=== PATIENT | female | born 1980 | race Caucasian/White ===

== ENCOUNTER 2019-05-28 19:26 | Emergency (ER) | payer BC ==
[2019-05-28 19:57] VITALS: BP 126/62; PULSE 80
--- NOTE | 2019-05-28 20:20 | EDM.PDOC ---
ED HPI GENERAL MEDICAL PROBLEM - General Chief Complaint: Abdominal Pain Stated Complaint: SIDE PAIN Time Seen by Provider: 05/28/19 19:28 Source of Information: Reports: Patient History Limitations: Reports: No Limitations - History of Present Illness INITIAL COMMENTS - FREE TEXT/NARRATIVE: This is a 38-year-old female. Onset around 10:30 AM with right lower quadrant and right flank pain. This pain seemed to start after she voided. Since that time she's been having intermittent pain that is worse with urinating and the pain seems to spread across her lower abdomen when she urinates. She's had no diarrhea she's had no fever or chills she's had no nausea or vomiting. When the pain is real sharp she has to bend over and cannot walk upright. She has no history of kidney stones. She still has her appendix though she does not have a gallbladder. Her tubes been tied and she's had no history of ovarian problems. She denies any fever or chills. Right Lower Abdomen Pain Score (Numeric/FACES): 7 - Related Data Allergies Allergy/AdvReac Type Severity Reaction Status Date / Time No Known Allergies Allergy Verified 05/28/19 19:52 Home Meds: Home Meds . [No Known Home Meds] 05/28/19 [History] Past Medical History - Past Surgical History GI Surgical History: Reports: Cholecystectomy Female Surgical History: Reports: Tubal Ligation Musculoskeletal Surgical History: Reports: Shoulder Surgery Social & Family History - Tobacco Use Smoking Status *Q: Never Smoker ED ROS GENERAL - Review of Systems Review Of Systems: See Below Constitutional: Denies: Fever, Chills HEENT: Reports: No Symptoms Respiratory: Denies: Shortness of Breath, Cough Cardiovascular: Denies: Chest Pain Endocrine: Reports: No Symptoms GI/Abdominal: Reports: Abdominal Pain. Denies: Constipation, Diarrhea, Nausea, Vomiting : Reports: Flank Pain, Frequency, Urgency. Denies: Dysuria Musculoskeletal: Reports: No Symptoms Skin: Reports: No Symptoms Neurological: Reports: No Symptoms Psychiatric: Reports: No Symptoms Hematologic/Lymphatic: Reports: No Symptoms ED EXAM, GI/ABD - Physical Exam Exam: See Below Exam Limited By: No Limitations General Appearance: Alert, WD/WN, No Apparent Distress Eyes: Bilateral: Normal Appearance Ears: Normal External Exam Nose: Normal Inspection Throat/Mouth: Normal Inspection, Normal Lips, Normal Voice, No Airway Compromise Head: Normocephalic Neck: Supple Respiratory/Chest: No Respiratory Distress, Lungs Clear, Normal Breath Sounds Cardiovascular: Regular Rate, Rhythm, No Murmur GI/Abdominal Exam: Soft, Other (Bowel sounds are decreased, but she is tender in the right lower quadrant and over McBurney's point with some mild peritoneal irritation, she is also tender in the right flank area on palpation, the left lower quadrant and the upper abdomen is nontender on palpation, when I jiggle the left side the right side has some slight irritation but no sharp pain.) Back Exam: Normal Inspection, Full Range of Motion Extremities: Normal Inspection, Normal Range of Motion Neurological: Alert, Oriented Psychiatric: Normal Affect, Normal Mood Skin Exam: Warm, Dry Course - Vital Signs Last Recorded V/S: Last Vital Signs Temp 98.1 F 05/28/19 19:54 Pulse 80 05/28/19 19:54 Resp 18 05/28/19 19:54 BP 126/62 05/28/19 19:54 Pulse Ox 100 05/28/19 19:54 - Orders/Labs/Meds Orders: Active Orders 24 hr Category Date Time Status Abdomen Pelvis wo Cont [CT] Stat Exams 05/28/19 21:17 Taken Labs: Laboratory Tests 05/28/19 05/28/19 05/28/19 Range/Units 20:34 20:34 21:00 WBC 9.57 (3.98-10.04) K/mm3 RBC 4.23 (3.98-5.22) M/mm3 Hgb 13.2 (11.2-15.7) gm/dl Hct 38.4 (34.1-44.9) % MCV 90.8 (79.4-94.8) fl MCH 31.2 (25.6-32.2) pg MCHC 34.4 (32.2-35.5) g/dl RDW Std Deviation 39.5 (36.4-46.3) fL Plt Count 305 (182-369) K/mm3 MPV 10.4 (9.4-12.3) fl Neut % (Auto) 54.9 (34.0-71.1) % Lymph % (Auto) 32.1 (19.3-51.7) % Starke % (Auto) 8.6 (4.7-12.5) % Eos % (Auto) 3.6 (0.7-5.8) Baso % (Auto) 0.6 (0.1-1.2) % Neut # (Auto) 5.26 (1.56-6.13) K/mm3 Lymph # (Auto) 3.07 (1.18-3.74) K/mm3 Starke # (Auto) 0.82 H (0.24-0.36) K/mm3 Eos # (Auto) 0.34 (0.04-0.36) K/mm3 Baso # (Auto) 0.06 (0.01-0.08) K/mm3 Sodium 141 (136-145) mEq/L Potassium 3.9 (3.5-5.1) mEq/L Chloride 105 (98-107) mEq/L Carbon Dioxide 26 (21-32) mEq/L Anion Gap 13.9 (5-15) BUN 18 (7-18) mg/dL Creatinine 1.0 (0.55-1.02) mg/dL Est Cr Clr Drug Dosing 60.92 mL/min Estimated GFR (MDRD) > 60 (>60) mL/min BUN/Creatinine Ratio 18.0 (14-18) Glucose 98 (74-106) mg/dL Calcium 8.7 (8.5-10.1) mg/dL Total Bilirubin 0.2 (0.2-1.0) mg/dL AST 23 (15-37) U/L ALT 34 (14-59) U/L Alkaline Phosphatase 57 (46-116) U/L Total Protein 6.9 (6.4-8.2) g/dl Albumin 3.7 (3.4-5.0) g/dl Globulin 3.2 gm/dL Albumin/Globulin Ratio 1.2 (1-2) Urine Color Yellow (Yellow) Urine Appearance Clear (Clear) Urine pH 6.0 (5.0-8.0) Ur Specific Hewett > or = 1.030 (1.005-1.030) Urine Protein Negative (Negative) Urine Glucose (UA) Negative (Negative) Urine Ketones Trace H (Negative) Urine Occult Blood Negative (Negative) Urine Nitrite Negative (Negative) Urine Bilirubin Negative (Negative) Urine Urobilinogen 0.2 (0.2-1.0) Ur Leukocyte Esterase Negative (Negative) Urine RBC 0-5 (0-5) /hpf Urine WBC 0-5 (0-5) /hpf Ur Squamous Epith Cells 5-10 H (0-5) /hpf Urine Bacteria Few (FEW) /hpf Urine Mucus Moderate H (FEW) /hpf - Radiology Interpretation Free Text/Narrative:: The scan of the abdomen and pelvis showed a normal appendix no kidney stones Mrazek cyst on the right ovary follicular cyst on the right ovary increased stool in the colon suggesting constipation. - Re-Assessments/Exams Free Text/Narrative Re-Assessment/Exam: 05/28/19 22:05 To the patient regarding the hemorrhagic right ovarian cyst and follicle. She does not have an acute appendicitis or kidney stones. I indicated that this will normally ease up over the next couple of days and then go away. I also suggested that she take a stool softener to help her have good bowel movements. Take some Tylenol ibuprofen as needed for the soreness and the pain. Departure - Departure Time of Disposition: 22:06 Disposition: Home, Self-Care 01 Condition: Good Clinical Impression: Hemorrhagic cyst of right ovary, Right lower quadrant abdominal pain - Discharge Information *PRESCRIPTION DRUG MONITORING PROGRAM REVIEWED*: Not Applicable *COPY OF PRESCRIPTION DRUG MONITORING REPORT IN PATIENT NANCY: Not Applicable Instructions: Ovarian Cyst Referrals: Mike Lim MD [Primary Care Provider] - Forms: ED Department Discharge Additional Instructions: Gentle activity over the weekend, some Tylenol or ibuprofen as needed for the soreness and pain, consider taking some stool softeners to have some good bowel movements that will ease up some of that soreness in that right lower quadrant of your abdomen, recheck with your family doctor next week or return to the ER if needed Sepsis Event Note - Evaluation Sepsis Screening Result: No Definite Risk - Focused Exam Vital Signs: Vital Signs Temp Pulse Resp BP Pulse Ox 05/28/19 19:54 98.1 F 80 18 126/62 100 Date Exam was Performed: 05/28/19 Time Exam was Performed: 22:02 - My Orders Last 24 Hours: My Active Orders 05/28/19 21:17 Abdomen Pelvis wo Cont [CT] Stat - Assessment/Plan Last 24 Hours: My Active Orders 05/28/19 21:17 Abdomen Pelvis wo Cont [CT] Stat
--- NOTE | 2019-05-29 13:47 | CT ---
CT abdomen and pelvis Technique: Multiple axial sections were obtained from above the dome of the diaphragm inferiorly through the pubic symphysis. Intravenous contrast and oral contrast not given. Study performed as a ureteral stone protocol. Comparison: No prior abdominal imaging is available. Findings: Kidneys show no abnormal calcifications. No ureteral dilatation or ureteral stone is appreciated. No bladder calculi are seen. Visualized lung bases show nothing acute. Liver shows no focal parenchymal abnormality. Spleen appears within normal limits. Adrenal glands show no nodule. Pancreas is within normal limits. Surgical clips are seen from prior cholecystectomy. Aorta shows no aneurysm. No retroperitoneal adenopathy or mesenteric abnormalities are seen. Mild increased stool is seen throughout the colon. Appendix is seen which is normal. 3.1 cm cyst is noted within the right ovary. Small calcification is seen within the left ovary or adnexa. Small hyperdense area is noted within the right ovary most likely due to small collapsing hemorrhagic cyst. No free fluid is seen. No inflammatory change is seen. Bone window settings were reviewed. No acute osseous finding is appreciated. Impression: 1. Mild increased stool throughout the colon. 2. 3.1 cm cyst within the right ovary with small adjacent collapsing hemorrhagic cyst within the right ovary. These findings are felt to be incidental. 3. No acute finding is appreciated on noncontrast CT study of the abdomen and pelvis. Diagnostic code #2 This report was dictated in [place] Standard Time I agree with preliminary report from [facility], finalized on 05/28/19, 10:58 PM Central Time
== END 2019-05-28 22:24 | disposition home or self-care (01) ==
LOC: JD.ED 19:26
DX: N83.201 Unspecified ovarian cyst, right side (principal)
CPT/HCPCS: 36415; 74176; 74176-26; 80053; 81001; 85025; 99282; 99284-25